=== PATIENT | male | born 1960 | race Caucasian/White ===

== ENCOUNTER 2017-06-24 18:58 | Emergency (ER) | payer MEDICARE, OTHER ==
[~2017-06-24] VITALS: Ht 165.1 cm; Wt 80.7 kg
[~2017-06-24 18:58] MED LIST: ALBUTEROL 0.5ML INH; ALBUTEROL17 G1 IH; ALBUTEROL17 GM INH; ALPRAZOLAM PO; ANEXSIA 7.5/3251 TA1 PO; ANTIBIOTIC PO; BACITRACIN/POLY30 GM TOP; BACITRACIN3.5 GM OPT OS; BACTRIM DS TABL1 TA1 PO; BENADRYL IV; CELEXA20 MG PO; CIPRO PO; DAYQUIL; DICLOFENAC PO; DIPHENYDRAMINE25 MG PO; FLEXERIL PO; GLUCOPHAGE500 M1 PO; HYDROCODON-ACE1 EAC1 PO; INVOKANA100 MG PO; KEFLEX500 MG PO; LIPITOR20 MG PO; LORTAB 10-3251 EACH PO; LORTAB 7.5-5001 TAB PO; LOTRIMIN 1% CR30 GM EXT; MEDROL4 MG/DOSE- PO; NAPROSYN500 MG PO; NAPROXEN PO; NEURONTIN PO; NEURONTIN300 MG PO; NEURONTIN600 MG PO; NO MEDICATIONS; NORFLEX100 M1 PO; PAIN MED PO; PERCOCET 10/3251 TAB PO; PREDNISONE PO; TRAMADOL HCL50 M1 PO; VITAMIN D1000 UNI2 PO; VOLTAREN50 MG PO; VOLTAREN75 MG PO; ZANAFLEX4 M1 PO; ZITHROMAX PO; [UNRECOGNIZED DRUG - SUPPLY]
[2017-06-24] MEDS ORDERED: BACTRIM 400-801 EACH (19:09)
== END 2017-06-24 21:36 | disposition home or self-care (01) ==
LOC: SED 18:58
DX: L02.412 Cutaneous abscess of left axilla (principal); J45.909 Unspecified asthma, uncomplicated; F41.9 Anxiety disorder, unspecified; F17.210 Nicotine dependence, cigarettes, uncomplicated; Z79.899 Other long term (current) drug therapy; Z88.0 Allergy status to penicillin; Z88.5 Allergy status to narcotic agent; Z91.040 Latex allergy status
CPT/HCPCS: 10060; 99283